=== PATIENT | female | born 1945 | race Caucasian/White ===

== ENCOUNTER 2019-12-19 09:44 | Emergency (ER) | payer OTHER ==
[~2019-12-19] VITALS: Ht 165.1 cm; Wt 72.6 kg
[2019-12-19] MEDS ORDERED: CHILDREN'S ASPI81 MG PO (10:01)
[2019-12-19] MEDS ORDERED: SIMVASTATIN20 MG PO (10:02)
== END 2019-12-19 12:41 | disposition home or self-care (01) ==
LOC: ER 09:44
DX: N39.0 Urinary tract infection, site not specified (principal); Z86.73 Personal history of transient ischemic attack (TIA), and cerebral infarction without residual deficits; K57.30 Diverticulosis of large intestine without perforation or abscess without bleeding; J90 Pleural effusion, not elsewhere classified